=== PATIENT | male | born 1945 | race Caucasian/White ===

== ENCOUNTER 2020-09-29 20:10 | Emergency (ER) | payer OTHER, MEDICARE ==
[~2020-09-29] VITALS: Ht 188 cm; Wt 108.9 kg
== END 2020-09-29 23:53 | disposition home or self-care (01) ==
LOC: ER 20:10
DX: S01.411A Laceration without foreign body of right cheek and temporomandibular area, initial encounter (principal); S60.511A Abrasion of right hand, initial encounter; W01.198A Fall on same level from slipping, tripping and stumbling with subsequent striking against other object, initial encounter
CPT/HCPCS: 12052; 99283-25